=== PATIENT | female | born 1940 | race Caucasian/White ===

== ENCOUNTER 2024-01-26 16:42 | Emergency (ER) | payer SELFPAY ==
[2024-01-26 16:45] VITALS: BP 139/88
[2024-01-26 16:48] VITALS: BP 139/88
--- NOTE | 2024-01-26 17:12 | ED.GENMED ---
History of Present Illness
General
Chief Complaint: Cardiac Symptoms
Time Seen by Provider: 01/26/24 17:01
History of Present Illness
History of Present Illness:
83-year-old female presents from outpatient surgical center for evaluation of atrial fibrillation. Patient awoke from anesthesia and anesthesiologist noted her to be in rapid atrial fibrillation. 5 mg of Lopressor and 5 mg of diltiazem were given
IV with improvement in heart rates but A-fib continued. Apparently according to EMS the patient was in a normal sinus rhythm on arrival. She currently denies any symptoms and has no prior history of A-fib.
Review of Systems
Review of Systems
Allergies reviewed?: Yes
All Other Systems: ROS reviewed and negative except as documented in HPI and ROS
Phy Exam
Physical Exam
Physical Exam:
GEN: Well appearing, NAD, WDWN
HEENT: Oral mucosa moist, no scleral icterus
Cardiac: Regular rate and rhythm with occasional extrasystoles
Lung: No respiratory distress, no tachypnea
MSK: No gross deformity or injuries
Skin: Good color, no pallor or jaundice, no rashes
Neuro: AO x3, moves all extremities freely
Psych: Calm, cooperative
Course
Orders/Labs/Results
Orders:
Orders
01/26/24 16:43
EKG [Electrocardiogram (*1)] Urgent
Reason for Study: Chest Pain
EKG- Treatment ONCE
01/26/24 17:37
Basic Metabolic Panel Urgent
01/26/24 18:15
Magnesium Routine
Potassium Routine
Abnormal Lab Results
01/26/24
17:37
Chloride 114 H mmol/L
(98-107)
Creatinine 0.5 L mg/dL
(0.6-1.0)
Calcium 7.9 L mg/dl
(8.4-10.2)
01/26/24 18:15
Vital Signs
Initial and Last Documented VS:
Initial Vital Signs
Temp Pulse Resp BP Pulse Ox
97.5 F 94 16 139/88 99
01/26/24 16:45 01/26/24 16:45 01/26/24 16:45 01/26/24 16:45 01/26/24 16:45
Last Documented Vital Signs
Temp Pulse Resp BP Pulse Ox
97.5 F 82 16 139/88 98
01/26/24 16:45 01/26/24 16:48 01/26/24 18:00 01/26/24 16:48 01/26/24 16:58
MDM/Problems Addressed
MDM/Problems Addressed:
Patient remained in normal sinus rhythm in the emergency department. Electrolytes are normal. I do not see any rationale for starting beta-blockers or anticoagulants on the basis of a brief episode of paroxysmal A-fib that occurred after waking up
from anesthesia. Recommend patient follow-up with her primary care physician as well as cardiology. I did discuss with the patient and her stroke risk given age and gender would suggest need for anticoagulants but again given the very brief event
do not feel this is clinically relevant at this time
Comment
Comment:
EKG independently interpreted by me shows a sinus rhythm with frequent PACs, no ST changes
*Critical Care Note
Total Time (30-74mins, 75-104mins- exclusive of procedures): Not Applicable
ED Attending Note
-
Portions of this chart may have been created with voice recognition software.� Occasional wrong word or��sound alike� substitutions may have occurred due to the inherent limitations of voice recognition software.
Discharge Plan
Departure
Patient Disposition: Home (Routine Discharge)
Date of Disposition: 01/26/24
Time of Disposition: 18:44
Patient with high blood pressure during this ER visit?: No
Discharge Problem:
Paroxysmal A-fib
Instructions: Atrial Fibrillation (DC)
Referrals:
LYNDA SCHAFER MD [Family Provider] -
Yessica Black MD [Active] -
Interventions
Interventions:
*Risk Screen - Suicide Last Done: 01/26/24 16:45
*General Assessment Last Done: 01/26/24 16:45
*Neglect/Abuse Screening Last Done: 01/26/24 16:45
ED- Fall Risk Assessment Last Done: 01/26/24 16:45
*Nursing Disposition Last Done: 01/26/24 18:48
ED- Pulmonary Assessment Last Done: 01/26/24 16:58
ED- Cardiac Assessment Last Done: 01/26/24 16:58
Discharge Date and Time
Print Language: AMHARIC
[2024-01-26 18:08] LABS: Blood Urea Nitrogen 16 mg/dl (7-17); Calcium 7.9 mg/dl (8.4-10.2); Carbon Dioxide 22 mmol/L (22-30); Chloride 114 mmol/L (98-107); Estimated Creatinine Clearance 72 ml/min; Glucose 91 mg/dl (70-99); Sodium 138 mmol/L (135-145); eGFR > 60.00
[2024-01-26 18:39] LABS: Potassium 3.9 mmol/L (3.5-5.1)
== END 2024-01-26 18:59 | disposition home or self-care (01) ==
LOC: EMR 16:42
PROVIDERS: Physician Assistant; EMERGENCY PHYSICIAN Emergency Medicine; FAMILY PHYSICIAN Internal Medicine
DX: I48.0 Paroxysmal atrial fibrillation (principal); Z98.890 Other specified postprocedural states
CPT/HCPCS: 99283; 80048; 83735; 84132; 93005

== ENCOUNTER → 2024-03-16 12:55 | Outpatient (REF) | payer OTHER, SELFPAY | LOC: HWRCS 12:55 | PROVIDERS: ATTENDING PHYSICIAN Internal Medicine Cardiovascular Disease; FAMILY PHYSICIAN Internal Medicine | DX: I48.0 Paroxysmal atrial fibrillation (principal) | CPT/HCPCS: 93306 ==

== ENCOUNTER 2024-05-01 12:32 | Day surgery (SDC) | payer OTHER, SELFPAY ==
[2024-05-01 11:18] VITALS: BMI 27.8
[2024-05-01 11:19] VITALS: BMI 27.8
[2024-05-01 11:20] VITALS: BP 140/92
[2024-05-01] MEDS: TYLENOL 1000 MG PO (11:31)
[2024-05-01] MEDS: CELEBREX 200 MG PO (11:31)
[2024-05-01 14:27] VITALS: BP 135/79
[2024-05-01 14:30] VITALS: BP 93/64
[2024-05-01 14:46] VITALS: BP 138/80
[2024-05-01] MEDS: ROXICODONE 10 MG PO (14:49)
[2024-05-01 15:00] VITALS: BP 153/75
== END 2024-05-01 15:35 | disposition home or self-care (01) ==
LOC: SDS 12:32
PROVIDERS: ATTENDING PHYSICIAN Student in an Organized Health Care Education/Training Program
PROC: 0SGP0JZ Fusion of Right Toe Phalangeal Joint with Synthetic Substitute, Open Approach (ICD-10-PCS; 2024-05-01)
PROC: 0SGP04Z Fusion of Right Toe Phalangeal Joint with Internal Fixation Device, Open Approach (ICD-10-PCS; 2024-05-01)
DX: M20.41 Other hammer toe(s) (acquired), right foot (principal)
CPT/HCPCS: 28285 ×2

== ENCOUNTER → 2024-07-14 13:03 | Outpatient (REF) | payer OTHER, SELFPAY | LOC: PAVMRI 13:03 | PROVIDERS: ATTENDING PHYSICIAN Physician Assistant Surgical; FAMILY PHYSICIAN Internal Medicine | DX: M25.552 Pain in left hip (principal) | CPT/HCPCS: 73721 ==